=== PATIENT | female | born 1970 | race Caucasian/White ===

== ENCOUNTER 2023-07-12 10:17 | Day surgery (SDC) | payer OTHER ==
[2023-07-10 13:24] LABS: BASOPHILS % (AUTO) 0.6 % (0.0-2.0); EOSINOPHILS # (AUTO) 0.1 K/uL (0.0-0.4); EOSINOPHILS % (AUTO) 1.6 % (0.0-4.0); HEMOGLOBIN 12.7 g/dL (12.0-16.0); LYMPHOCYTES # (AUTO) 1.8 K/uL (1.0-5.5); LYMPHOCYTES % (AUTO) 21.7 % (20.5-51.5); MEAN CORPUSCULAR HEMOGLOBIN 29 pg (27-31); MEAN CORPUSCULAR HGB CONC 34 % (32-36); MEAN CORPUSCULAR VOLUME 87 fL (79.0-98.0); MONOCYTES # (AUTO) 0.5 K/uL (0.0-1.0); MONOCYTES % (AUTO) 5.9 % (1.7-9.3); NEUTROPHILS # (AUTO) 5.9 K/uL (1.8-7.7); NEUTROPHILS % (AUTO) 70.2 % (40.0-70.0); PLATELET COUNT (AUTO) 332 K/uL (130-430); RED BLOOD CELL COUNT(AUTO) 4.37 MIL/uL (4.2-6.2); RED CELL DISTRIBUTION WIDTH 13.9 % (9.0-15.0); WHITE BLOOD COUNT (AUTO) 8.3 K/uL (4.8-10.8)
[2023-07-10 13:33] LABS: ALBUMIN 3.1 g/dL (3.4-4.8); CALCIUM 9.5 mg/dL (8.4-11.0); CREATININE 0.68 mg/dL (0.55-1.30); INR 0.9 (0.8-1.2); POTASSIUM 4.3 mmol/L (3.5-5.1); PROTHROMBIN TIME 9.6 SECS (9.5-12.5); TOTAL BILIRUBIN 0.5 mg/dL (0.0-1.0); TOTAL PROTEIN, SERUM 7.1 g/dL (6.4-8.3)
[2023-07-10 13:52] LABS: BILIRUBIN,URINE NEGATIVE (NEGATIVE); BLOOD, URINE NEGATIVE (NEGATIVE); CLARITY/URINE CLEAR (CLEAR); COLOR,URINE YELLOW (YELLOW); GLUCOSE,URINE NEGATIVE (NEGATIVE); KETONES,URINE NEGATIVE (NEGATIVE); LEUKOCYTE ESTERASE ,URINE NEGATIVE (NEGATIVE); NITRITE, URINE NEGATIVE (NEGATIVE); PROTEIN URINE NEGATIVE (NEGATIVE); UROBILINOGEN,URINE 0.2 (0.2-1.0)
[2023-07-10 13:53] LABS: HCG,QUAL RESULT NEGATIVE (NEGATIVE)
[~2023-07-12] VITALS: Ht 162.6 cm; Wt 120.2 kg
[~2023-07-12 10:17] MED LIST: ACETAMINOPHEN 500 MG TABLET PO ONE; CEFAZOLIN SOD 2 GM in D5W 50 ML IV ONE
[2023-07-12] MEDS ORDERED: ACETAMINOPHEN 500 MG TABLET ONE (11:11)
[2023-07-12] MEDS ORDERED: PROPOFOL 200MG/ 20ML VIAL (DIPRIVAN) IV ONE (11:48)
[2023-07-12] MEDS ORDERED: LR 1,000 ML IV.SOLN IV ONE (11:48)
[2023-07-12] MEDS ORDERED: KETOROLAC TROMETHAMINE 30 MG VIAL ONE (11:48)
[2023-07-12] MEDS ORDERED: SEVOFLURANE 15 MIN GAS INH ONE (11:48)
[2023-07-12] MEDS ORDERED: ePHEDrine sulfate 50 MG/ML VIAL ONE (11:48)
[2023-07-12] MEDS ORDERED: NS IRRIG SOLN 1000 ML IR ONE (11:48)
[2023-07-12] MEDS ORDERED: DEXAMETHASONE SOD PHOSPHATE 4 MG/ML VIAL ONE (11:48)
[2023-07-12] MEDS ORDERED: ROPIVACAINE 40 MG/20 ML AMP EP ONE (11:48)
[2023-07-12] MEDS ORDERED: MIDAZOLAM HCL 2 MG/2 ML VIAL (VERSED) ONE (12:02)
[2023-07-12] MEDS ORDERED: fentaNYL CITRATE/PF 100 MCG/2 ML AMP ONE (12:02)
[2023-07-12] MEDS ORDERED: ACETAMINOPHEN I.V. 1000 MG 100 ML IV ONE (12:03)
[2023-07-12] MEDS ORDERED: VANCOMYCIN HCL 1.25 GM/NS 250 ML IV ONE (13:00)
[2023-07-12 17:04] VITALS: O2SAT 98
== END 2023-07-12 17:45 | disposition home or self-care (01) ==
LOC: SDS 10:17 → SMU 10:18 → SDS 17:45
PROVIDERS: ATTEND Orthopaedic Surgery Sports Medicine
DX: S82.61XA Displaced fracture of lateral malleolus of right fibula, initial encounter for closed fracture (principal); S82.51XA Displaced fracture of medial malleolus of right tibia, initial encounter for closed fracture; E56.9 Vitamin deficiency, unspecified; I10 Essential (primary) hypertension; E66.01 Morbid (severe) obesity due to excess calories; Z79.01 Long term (current) use of anticoagulants; Z79.899 Other long term (current) drug therapy; W19.XXXA Unspecified fall, initial encounter; Y93.89 Activity, other specified; Y92.89 Other specified places as the place of occurrence of the external cause; Y99.8 Other external cause status
CPT/HCPCS: 80053; 81001; 84703; 85025; 85610; 85730; 87081; 36415; 71046; 81003; 27814; 64450; 64447; 76000; C1713 ×12; J0690; J1100; J1885; J3465; J2704; J2795; J3370; J3010; J7060; J7120; C1769 ×2; J0131; 76001